=== PATIENT | female | born 1950 | race Caucasian/White ===

== ENCOUNTER → 2016-11-21 | Outpatient (CLI) | payer OTHER ==
--- NOTE | 2016-11-21 15:23 | CT ---
HISTORY: Cough. Study: CT paranasal sinuses without contrast Comparison: None. Technique: Multiple axial images of the paranasal sinuses were obtained without the administration o f IV contrast. Coronal and sagittal reformats were performed and reviewed. Dose reduction techniqu es including Automated Exposure Control (AEC) and adjustment of mA and kV were utilized. Findings: The maxillary sinuses, anterior and posterior ethmoid air cells, sphenoid sinuses, and frontal sinus es demonstrate no evidence for mucosal inflammatory disease. The nasal septum is midline. The osti omeatal unit on the right and left are widely patent without inflammatory change. The left and righ t frontal recesses are unremarkable in their appearance. Visualized portions of the posterior fossa and intracranial structures are unremarkable as well. Multiple tooth roots are seen within the bila teral maxillary sinuses. IMPRESSION: 1. Unremarkable CT of the paranasal sinuses. Reported By:
== END ==
LOC: RAD 13:57
PROVIDERS: ATTEND Internal Medicine Sleep Medicine
DX: R05 Cough (principal); E66.8 Other obesity
CPT/HCPCS: 70486

== ENCOUNTER → 2017-02-10 | Outpatient (CLI) | payer OTHER ==
--- NOTE | 2017-02-10 09:44 | US ---
HISTORY: Left upper quadrant pain Study: The abdominal ultrasound: Multiplanar ultrasonographic examination of the abdomen was perform ed. Comparison: None Findings: The liver is of mildly increased echogenicity consistent with mild fatty infiltration. The gallbladde r shows no evidence of gallstones, pericholecystic fluid or gallbladder wall thickening. Common bile duct measures 3.2 mm in maximum dimension. Spleen is normal in its appearance. The pancreas is normal in its appearance. The kidneys are of normal size, echogenicity and echotexture. The right measures 11.6 cm length by 5.0 x 5.3 cm. The left kidney measures 9.7 cm length by 4.9 x 4.9 cm. The abdominal aorta and inferior vena cava are normal. IMPRESSION: 1. Mild fatty infiltration of the liver. 2. Otherwise negative abdominal ultrasound. Reported By:
== END ==
LOC: RAD 08:29
PROVIDERS: ATTEND Internal Medicine Gastroenterology
DX: R10.12 Left upper quadrant pain (principal)
CPT/HCPCS: 76700

== ENCOUNTER 2019-01-15 18:34 | Inpatient (IN) ==
[2019-01-15] MEDS ORDERED: ZOFRAN INJ 4 MG VIAL IVP ONE (20:43)
[2019-01-15] MEDS ORDERED: NS 1000 ML 1,000 ML IV ONE (20:43)
[2019-01-15] MEDS ORDERED: DEMEROL INJ IVP ONE (20:43)
[2019-01-15] MEDS ORDERED: NS 1000 ML 1,000 ML ONE (20:44)
--- NOTE | 2019-01-15 20:46 | ED.ABDFE ---
HPI Time Seen Time Seen by Provider: 01/15/19 20:35 PCP Primary Care Physician: ANALISA PRICE HPI Comment HPI Comment: PATIENT IS 68YR OLD FEMALE HERE IN THE EMERGENCY ROOM WITH DIFFUSE ABDOMINAL CRAMPING 6/10 RADIATING TO THE BACK. PATIENT WAS DIAGNOSE WITH DIVERTICULITIS ON MEDICATION BUT CONTINUE TO GET WORSE. HAVE DIARRHEA AND NAUSEA. PATIENT NOT HOLDING DOWN FLUID OR MEDICATION. NO FEVER. FEELING WEAK. Complaint Doctors Chief Complaint Comments: ABDOMINAL CRAMPING TIMES 2 DAYS. Chief Complaint:: PT STATES SHE WAS SEEN IN ER IN [place] ON 01/14/19 AND DX WITH DIVERTICULITIS AND GIVEN IVF, RX AND PAIN MEDS ,,, PT STATES SHE HAS NOT BEEN ABLE TO HOLD ANYTHING DOWN AND HAVING DIARRHEA, AND PT C/O SEVERE ABD CRAMPS ,BR Reviewed Nurses Notes Review: Yes Source History Provided: Patient Mode of arrival Mode of Arrival: Ambulatory Timing Onset of Chief Complaint: 01/14/19 Came on: Suddenly Duration Since Onset: Constant Duration: Days Location Location: Diffuse Quality Quality: Cramping Context History of: Abdominal surgery (APPENDECTOMY.) and Similar pain (dx) (DIVERTICULITIS.) Modifying factors Worsening Factors: Food (ORAL INTAKE.) Improving Factors: Lying Still Associated signs and symptoms Associated Signs and Symptoms: Nausea, Vomiting and Diarrhea Other history Other History: HISTORY DIVERTICULITIS. PMH PMH Past Medical History: Yes Past Medical History: Diabetes, Dyslipidemia, GERD and Hypertension Past Surgical History: Yes Surgical History: Appendectomy, UNIT AID Surgery and Hysterectomy Past Surgical History Comment: BREAST REDUCTION Family History History of Family Medical Conditions: Yes Family Medical History: [place] Family Medical History Comment: CEREBRAL HEMMORAGE, Social History Does patient currently use any type of tobacco product: No Have you used tobacco products in the last 12 months: No Type of Tobacco Use: None Does any household member use tobacco: No Alcohol Use: None Do you use any recreational Drugs:: No Lives With: Family Lives Where: Home infectious screening In the last 2 months have you had wt loss of >10#?: NO Have you had fever, night sweats or hemotysis?: No Have you traveled outside the country in the last 6 months?: No Isolation: Standard ROS Review of Systems Constitutional: See HPI, Weakness and Fatigue; negative Fever Eyes: No Symptoms Reported and See HPI ENTM: No Symptoms Reported and See HPI Respiratoy: No Symptoms Reported and See HPI; negative Short of Breath and Wheezing Cardiovascular: No Symptoms Reported and See HPI; negative Chest Pain Gastrointestinal/Abdominal: See HPI, Abdominal Pain, Diarrhea, Nausea and Vomiting Genitourinary: No Symptoms Reported and See HPI Neurological: See HPI and Weakness; negative Headache and Dizziness Musculoskeletal: No Symptoms Reported and See HPI; negative Back Pain Integumentary: No Symptoms Reported and See HPI; negative Change in Color, Rash and Juandice Hematologic/Lymphatic: No Symptoms Reported and See HPI; negative Easy Bruising and Swollen Glands Endocrine: No Symptoms Reported and See HPI; negative Increased Thirst and Increased Urine Psychiatric: No Symptoms Reported and See HPI All Other Systems: Reviewed and Negative PE Vital Signs Vitals: Temperature 97.0 F Pulse Rate 85 Respiratory Rate 18 Blood Pressure [Right Arm] 128/62 Blood Pressure 141/65 O2 Sat by Pulse Oximetry 99 General Limitations: No Limitations General Appearance: Alert and In No Apparent Distress Head Head Exam: Normal Inspection and Atraumatic Eyes Eye exam: Normal Appearance and PERRL; negative Scleral Icterus and Conjunctival Injection ENT ENT Exam: Normal Exam, Normal Oropharynx, Normal External Ear Exam and TM's Normal Bilaterally Neck Neck Exam: Normal Inspection and Trachea Midline; negative Tenderness and Lymphadenopathy Respiratory Respiratory Exam: Normal Lung Sounds Bilat; negative Accessory Muscle Use, Chest Wall Tenderness and Respiratory Distress Respiratory Exam: Bilateral: Clear to Auscultation Cardiovascular Cardiovascular Exam: Regular Rate, Normal Rhythm and Normal Heart Sounds; negative Systolic Murmur and Diastolic Murmur Abdominal Exam Abdominal Exam: Normal Bowel Sounds, Soft and Tenderness Abdominal Tenderness: Diffuse and Moderate Rectal Rectal Exam: Deferred Back Back Exam: Normal Inspection; negative (R) CVA Tenderness and (L) CVA Tenderness Extremeties Extremities Exam: Normal Inspection and Normal Capillary Refill; negative Tenderness, Edema and Calf Tenderness External Exam: Female: Deferred : Speculum Exam (Female): Deferred : Bimanual Exam (female): Deferred Neurologic Neurological Exam: Alert, Oriented X3 and CN II-XII Intact; negative Motor Sensory Deficit Skin Skin Exam: Dry; negative Rash MDM Differential Diagnosis Differential Diagnosis- Considerations may include:: Cholcystitis, Cholelethiasis, Constipation, Diverticular disease, Gastritus/PUD, Gastroenteritis, Inflammatory BD, Ischemic Bowel, Pancreatitis, Urinary tract infection and Urolithiasis COURSE Treatment Treatment: SEE ORDERS. Education/Counseling Education/Counseling: Patient Educated On: Diagnosis ROR Labs Reviewed Laboratory Results Reviewed?: Yes Result Diagrams: 01/18/19 04:38 01/18/19 04:38 Laboratory: WBC 6.1 X10^3/uL (3.6-10.0) 01/15/19 21:00 RBC 4.65 X10^6/uL (3.5-5.4) 01/15/19 21:00 Hgb 13.1 g/dL (12.0-16.0) 01/15/19 21:00 Hct 38.4 % (36.0-47.0) 01/15/19 21:00 MCV 82.5 fL (80.0-100.0) 01/15/19 21:00 MCH 28.1 pg (27.0-34.0) 01/15/19 21:00 MCHC 34.1 g/dL (33.0-35.0) 01/15/19 21:00 RDW 15.2 % (11.6-16.5) 01/15/19 21:00 Plt Count 214 X10^3/uL (150.0-450.0) 01/15/19 21:00 MPV 8.1 fL (7.4-11.0) 01/15/19 21:00 Neut % (Auto) 65.8 % (42.0-75.0) 01/15/19 21:00 Lymph % (Auto) 19.6 % (21.0-51.0) L 01/15/19 21:00 [place] % (Auto) 13.6 % (0.0-13.0) H 01/15/19 21:00 Eos % (Auto) 0.6 % (0.9-2.9) L 01/15/19 21:00 Baso % (Auto) 0.4 % (0.2-1.0) 01/15/19 21:00 Neut # (Auto) 4.0 x10^3/uL (2.2-4.8) 01/15/19 21:00 Lymph # (Auto) 1.2 X10^3/uL (1.3-2.9) L 01/15/19 21:00 [place] # (Auto) 0.8 x10^3/uL (0.3-0.8) 01/15/19 21:00 Eos # (Auto) 0.0 x10^3/uL (0.0-0.2) 01/15/19 21:00 Baso # (Auto) 0.0 X10^3/uL (0.0-0.1) 01/15/19 21:00 Absolute Nucleated RBC 0.0 /100WBC 01/15/19 21:00 Sodium 135 mmol/L (136-145) L 01/15/19 21:00 Corrected Sodium 136 mmol/L (136-145) 01/15/19 21:00 Potassium 3.3 mmol/L (3.5-5.1) L 01/15/19 21:00 Chloride 97 mmol/L (98-107) L 01/15/19 21:00 Carbon Dioxide 28.7 mmol/L (21-32) 01/15/19 21:00 BUN 15 mg/dL (7-18) 01/15/19 21:00 Creatinine 0.82 mg/dL (0.55-1.02) 01/15/19 21:00 Est GFR (MDRD) Af Amer > 60 (>60) 01/15/19 21:00 Est GFR (MDRD) Non-Af > 60 (>60) 01/15/19 21:00 Glucose 134 mg/dL (65-99) H 01/15/19 21:00 Calcium 9.4 mg/dL (8.5-10.1) 01/15/19 21:00 Corrected Calcium TNP 01/15/19 21:00 Total Bilirubin 0.40 mg/dL (0.2-1.0) 01/15/19 21:00 AST 21 Units/L (15-37) 01/15/19 21:00 ALT 19 Units/L (12-78) 01/15/19 21:00 Alkaline Phosphatase 60 Units/L (46-116) 01/15/19 21:00 Total Protein 7.4 g/dL (6.4-8.2) 01/15/19 21:00 Albumin 3.6 g/dL (3.4-5.0) 01/15/19 21:00 Globulin 3.8 g/dL (2.5-4.5) 01/15/19 21:00 Albumin/Globulin Ratio 0.9 Ratio (1.1-2.1) L 01/15/19 21:00 Amylase 35 Units/L (25-115) 01/15/19 21:00 Lipase 76 Units/L (73-393) 01/15/19 21:00 XRAY XRAY Interpreted by: Radiologist XRAY Findings: REPORT NOTED AND DISCUSSED WITH PATIENT. Opioid Opioid Risk Tool Age (Gokul box if 16-45): No History of Preadolescent Sexual Abuse: No Total: 0 Total Score Risk Category: Low Risk Copyright: Carlos WEBSTER predicting aberrant behaviors Diagnosis Discharge Problem: Acute colitis, Acute diverticulitis, Acute dehydration Abdominal pain Qualifiers: Abdominal location: generalized Qualified Code(s): R10.84 - Generalized abdominal pain Instructions Instructions: Dehydration, Adult, [id number] Diverticulitis, Pvkw-[id number] Colitis Forms: Excuse From Work or School Patient Portal
[2019-01-15] MEDS ORDERED: FLAGYL IV PREMIX 500 MG BAG 500 MG/100 ML BAG IV ONE (20:58)
[2019-01-15] MEDS ORDERED: ZOFRAN INJ 4 MG VIAL ONE (20:58)
[2019-01-15] MEDS ORDERED: DEMEROL INJ ONE (20:59)
[2019-01-15 21:10] LABS: BASOPHILS % (AUTO) 0.4 % (0.2-1.0); EOSINOPHILS % (AUTO) 0.6 % (0.9-2.9); HEMATOCRIT 38.4 % (36.0-47.0); HEMOGLOBIN 13.1 g/dL (12.0-16.0); LYMPHOCYTES # (AUTO) 1.2 X10^3/uL (1.3-2.9); LYMPHOCYTES % (AUTO) 19.6 % (21.0-51.0); MEAN CORPUSCULAR HEMOGLOBIN 28.1 pg (27.0-34.0); MEAN CORPUSCULAR HGB CONC 34.1 g/dL (33.0-35.0); MEAN CORPUSCULAR VOLUME 82.5 fL (80.0-100.0); MEAN PLATELET VOLUME 8.1 fL (7.4-11.0); MONOCYTES # (AUTO) 0.8 x10^3/uL (0.3-0.8); MONOCYTES % (AUTO) 13.6 % (0.0-13.0); NEUTROPHILS % (AUTO) 65.8 % (42.0-75.0); PLATELET COUNT 214 X10^3/uL (150.0-450.0); RED BLOOD COUNT 4.65 X10^6/uL (3.5-5.4); RED CELL DISTRIBUTION WIDTH 15.2 % (11.6-16.5); WHITE BLOOD COUNT 6.1 X10^3/uL (3.6-10.0)
[2019-01-15 21:19] LABS: ALANINE AMINOTRANSFERASE 19 Units/L (12-78); ALBUMIN 3.6 g/dL (3.4-5.0); ALKALINE PHOSPHATASE 60 Units/L (46-116); AMYLASE 35 Units/L (25-115); ASPARTATE AMINO TRANSFERASE 21 Units/L (15-37); BLOOD UREA NITROGEN 15 mg/dL (7-18); CALCIUM 9.4 mg/dL (8.5-10.1); CARBON DIOXIDE 28.7 mmol/L (21-32); CHLORIDE 97 mmol/L (98-107); COR NA(FOR HYPERGLY) 136 mmol/L (136-145); CREATININE 0.82 mg/dL (0.55-1.02); LIPASE 76 Units/L (73-393); SODIUM 135 mmol/L (136-145); TOTAL PROTEIN 7.4 g/dL (6.4-8.2); eGFR NON BLACK RACES > 60 (>60)
[2019-01-15] MEDS: FLAGYL IV PREMIX 500 MG BAG 500 MG/100 ML BAG IV ONE (21:29)
--- NOTE | 2019-01-15 22:57 | CT ---
CT abdomen and pelvis with contrast Indication: Diverticulitis, abdominal pain Technique: Helical CT images of the abdomen and pelvis were obtained with IV contrast. Reformatted images in the coronal and sagittal planes were also generated for review. Comparison: None Findings: Mild scarring versus atelectasis of the bilateral lung bases noted. No acute osseous abnormality. The liver is mildly enlarged and diffusely hypoattenuating, suggestive for fatty infiltration. No focal hepatic lesions seen. The gallbladder, spleen, pancreas, adrenals and kidneys are unremarkable. Evaluation of the GI tract is slightly limited without oral contrast. Accounting for this, there is diffuse mural thickening of the entire colon, compatible with pancolitis. Mild diverticulosis of the distal colon also noted. No abscess or free air to suggest perforation seen. There is no bowel obstruction. The abdominal aorta is mildly calcified without aneurysm. Urinary bladder is normal without stones. Uterus is absent. No significant free fluid or bulky lymphadenopathy is identified. Impression: Moderate diffuse mural thickening of the entire colon is compatible with pancolitis, which is likely infectious rather than inflammatory or ischemic in etiology. Correlate clinically. Mild distal colonic diverticulosis, enlarged fatty liver and additional findings as above. Reported By:
[2019-01-16 02:05] VITALS: BMI 31.0
[2019-01-16] MEDS ORDERED: FLAGYL IV PREMIX 500 MG BAG 500 MG/100 ML BAG IV ONE (02:40)
[2019-01-16] MEDS: FLAGYL IV PREMIX 500 MG BAG 500 MG/100 ML BAG IV SCH ×4 (02:50→22:30)
[2019-01-16] MEDS: FLAGYL IV PREMIX 500 MG BAG 500 MG/100 ML BAG IV ONE (02:50)
[2019-01-16] MEDS ORDERED: ZOFRAN INJ 4 MG VIAL ONE (02:59)
[2019-01-16 03:02] LABS: CRYPTOSPORIDIUM PARVUM ANTIGEN NEGATIVE (NEGATIVE); GIARDIA LAMBLIA ANTIGEN NEGATIVE (NEGATIVE)
[2019-01-16] MEDS: ZOFRAN INJ 4 MG VIAL IVP PRN ×2 (03:05→08:49)
[2019-01-16 05:17] LABS: BASOPHILS % (AUTO) 0.4 % (0.2-1.0); EOSINOPHILS # (AUTO) 0.1 x10^3/uL (0.0-0.2); LYMPHOCYTES # (AUTO) 1.5 X10^3/uL (1.3-2.9); LYMPHOCYTES % (AUTO) 26.8 % (21.0-51.0); MEAN CORPUSCULAR HEMOGLOBIN 27.9 pg (27.0-34.0); MEAN CORPUSCULAR HGB CONC 33.2 g/dL (33.0-35.0); MONOCYTES # (AUTO) 0.9 x10^3/uL (0.3-0.8); MONOCYTES % (AUTO) 15.1 % (0.0-13.0); NEUTROPHILS # (AUTO) 3.2 x10^3/uL (2.2-4.8); NEUTROPHILS % (AUTO) 55.7 % (42.0-75.0); PLATELET COUNT 195 X10^3/uL (150.0-450.0); RED BLOOD COUNT 4.29 X10^6/uL (3.5-5.4); RED CELL DISTRIBUTION WIDTH 15.1 % (11.6-16.5); WHITE BLOOD COUNT 5.8 X10^3/uL (3.6-10.0)
[2019-01-16 05:28] LABS: ALANINE AMINOTRANSFERASE 15 Units/L (12-78); ALBUMIN 3.1 g/dL (3.4-5.0); ALKALINE PHOSPHATASE 50 Units/L (46-116); ASPARTATE AMINO TRANSFERASE 17 Units/L (15-37); BLOOD UREA NITROGEN 14 mg/dL (7-18); CALCIUM 8.6 mg/dL (8.5-10.1); CARBON DIOXIDE 28.6 mmol/L (21-32); CHLORIDE 98 mmol/L (98-107); COR CA(FOR HYPOALB) 9.3 mg/dL (8.5-10.1); COR NA(FOR HYPERGLY) 138 mmol/L (136-145); CREATININE 0.71 mg/dL (0.55-1.02); SODIUM 137 mmol/L (136-145); TOTAL PROTEIN 6.5 g/dL (6.4-8.2); eGFR NON BLACK RACES > 60 (>60)
[2019-01-16] MEDS ORDERED: POTASSIUM CHL 60 MEQ/NS 0.45% 500 ML IV PRN (06:12)
[2019-01-16] MEDS ORDERED: MICRO K EXTEN CAP 10 MEQ PO PRN (06:12)
[2019-01-16] MEDS ORDERED: POTASSIUM CHLORIDE LIQ 20 MEQ UDC PO PRN (06:12)
[2019-01-16] MEDS ORDERED: POTASSIUM CHL 40 MEQ/NS 0.45% 500 ML IV PRN (06:12)
[2019-01-16] MEDS ORDERED: KLOR-CON PO PRN (06:12)
[2019-01-16] MEDS: CIPRO IV 400 MG PREMIX* 400 MG/200 ML IV.SOLN. IV SCH ×2 (08:46→21:26)
[2019-01-16] MEDS: NS 1000 ML 1,000 ML IV SCH (08:47)
[2019-01-16] MEDS: MAGNESIUM SULFATE 1 GRAM/100 mL PREMIX 1 GM/100 ML BAG IV PRN ×2 (10:53→11:55)
[2019-01-16] MEDS: DEMEROL INJ IVP PRN ×2 (10:59→21:18)
[2019-01-16] MEDS ORDERED: LOVENOX INJ 40 MG SYR SC SCH (11:00)
--- NOTE | 2019-01-16 11:22 | DR.H&P ---
H&P - History & Physical for Day of: H&P Date: 01/16/19 - Chief Complaint Chief Complaint: ABDOMINAL PAIN - History of Present Illness History of Present Illness: IS A 68 YEAR OLD WHITE FEMALE WHO PRESENTED TO THE ER WITH COMPLAINTS OF ABDOMINAL CRAMPS, NAUSEA, VOMITING, AND DIARRHEA. SHE WAS DIAGNOWSED WITH DIVERTICULITIS ON 01/14/19. SHE WAS GIVEN FLAGYL AND CEPHALEXIN AT THAT TIME. SHE DENIES IMPROVEMENT IN SYMPTOMS. ON ARRIVAL, VITALS WERE 97.0-85-18-99%-141/65. LABS WERE OBTAINED. ABNORMAL LAB VALUES INCLUDE THE FOLLOWING: SODIUM 135, POTASSIUM 3.3, CHLORIDE 97, GLUCOSE 134. AN ABDOMEN/PELVIS CT WAS OBTAINED AND REVEALED: Moderate diffuse mural thickening of the entire colon is compatible with pancolitis, which is likely infectious rather than inflammatory or ischemic in etiology. Correlate clinically. Mild distal colonic diverticulosis, enlarged fatty liver. SHE WAS GIVEN A NORMAL SALINE BOLUS, ZOFRAN 4MG IV X 1, FLAGYL 500MG IV X 1, AND DEMEROL 25MG IV X 1 IN THE ER. SHE WAS ADMITTED FOR ACUTE COLITIS AND DEHYDRATION. WE WILL START CIPRO 400MG IV Q12H, FLAGYL 500MG IV Q6H, DEMEROL 25MG IV Q6H PRN, ZOFRAN 4MG IV Q6H PRN, NORMAL SALINE AT 75ML/HR, AND THE POTASSIUM PROTOCOL. WE WILL OBTAIN STOOL STUDIES. OTHERWISE, WE PLAN TO FOLLOW UP WITH AM LABS AND CONTINUE TO MONITOR. - Past Medical History Past Medical History: Hypertension, Dyslipidemia, Diabetes, GERD - Past Surgical History Surgical History: Appendectomy, [employer] Surgery, Hysterectomy, Ortho Surgery - Family History Family Medical History: [place] - Social History Does patient currently use any type of tobacco product: No Have you used tobacco products in the last 12 months: No Type of Tobacco Use: None Does any household member use tobacco: No Alcohol Use: None Drug Use: None Prescription drug monitoring program results: PDMP was not reviewed - Medications Home Medications: erythromycin base Allergy (Verified 01/16/19 01:31) penicillin V Allergy (Verified 01/15/19 18:42) CONTINUE taking the following medications losartan-hydrochlorothiazide 1 tab PO DAILY 01/16/19 [History] pantoprazole 40 mg PO BID 01/16/19 [History] ranitidine HCl 150 mg PO DAILY 01/16/19 [History] - Review of Systems Constitutional: Fever, Weakness Eyes: No Symptoms Reported ENT: No Symptoms Reported Respiratory: No Symptoms Reported Cardiovascular: No Symptoms Reported Gastrointestinal: Nausea, Vomiting, Abdominal Pain, Diarrhea Genitourinary: No Symptoms Reported Musculoskeletal: No Symptoms Reported Skin: No Symptoms Reported Neurological: Weakness - Physical Exam Vital Signs: Temperature 98.4 F Pulse Rate [Right Brachial] 82 Pulse Rate [Apical] 74 Pulse Rate 85 Respiratory Rate 20 Blood Pressure [Right Arm] 148/70 Blood Pressure 141/65 O2 Sat by Pulse Oximetry 96 Oriented: Normal Eyes: Normal Ear: Normal Nose: Normal Throat: Normal Respiratory: Diminished Throughout Cardiovascular: Normal : Normal Auscultation: Bowel Sounds: Normal Palpation: Normal Tenderness: Diffuse, Moderate. negative: Rebound, Guarding, Rigidity Skin: Decreased [place] Musculoskeletal: Normal Psychiatric: Normal Mood Description: Calm Affect: Normal Speech Pattern: Clear - Assessment/Plan (1) Acute colitis Status: Acute Plan: CIPRO 400MG IV Q12H, FLAGYL 500MG IV Q6H, DEMEROL 25MG IV Q6H PRN, ZOFRAN 4MG IV Q6H PRN, NORMAL SALINE AT 75ML/HR, AND THE POTASSIUM PROTOCOL (2) Acute dehydration Status: Acute Plan: NORMAL SALINE AT 75ML/HR, CONTINUE TO MONITOR - Allergies Allergies/Adverse Reactions: Allergies Allergy/AdvReac Type Severity Reaction Status Date / Time erythromycin base Allergy Verified 01/16/19 01:31 penicillin V Allergy Verified 01/15/19 18:42
[2019-01-16] MEDS: K-RIDER 10 MEQ/NS 100 ML 10 MEQ/100 ML BAG IV PRN ×6 (13:30→21:24)
[2019-01-17] MEDS: NS 1000 ML 1,000 ML IV SCH ×3 (00:04→19:07)
[2019-01-17] MEDS: FLAGYL IV PREMIX 500 MG BAG 500 MG/100 ML BAG IV SCH ×4 (03:47→22:30)
[2019-01-17 05:25] LABS: BASOPHILS % (AUTO) 0.5 % (0.2-1.0); EOSINOPHILS # (AUTO) 0.2 x10^3/uL (0.0-0.2); EOSINOPHILS % (AUTO) 4.6 % (0.9-2.9); HEMATOCRIT 33.3 % (36.0-47.0); HEMOGLOBIN 11.4 g/dL (12.0-16.0); LYMPHOCYTES # (AUTO) 1.6 X10^3/uL (1.3-2.9); LYMPHOCYTES % (AUTO) 30.7 % (21.0-51.0); MEAN CORPUSCULAR HEMOGLOBIN 28.5 pg (27.0-34.0); MEAN CORPUSCULAR HGB CONC 34.4 g/dL (33.0-35.0); MEAN CORPUSCULAR VOLUME 82.9 fL (80.0-100.0); MEAN PLATELET VOLUME 9.1 fL (7.4-11.0); MONOCYTES # (AUTO) 0.6 x10^3/uL (0.3-0.8); MONOCYTES % (AUTO) 11.2 % (0.0-13.0); NEUTROPHILS # (AUTO) 2.8 x10^3/uL (2.2-4.8); PLATELET COUNT 207 X10^3/uL (150.0-450.0); RED BLOOD COUNT 4.01 X10^6/uL (3.5-5.4); RED CELL DISTRIBUTION WIDTH 14.9 % (11.6-16.5); WHITE BLOOD COUNT 5.3 X10^3/uL (3.6-10.0)
[2019-01-17 05:31] LABS: ALANINE AMINOTRANSFERASE 12 Units/L (12-78); ALBUMIN 2.9 g/dL (3.4-5.0); ALKALINE PHOSPHATASE 48 Units/L (46-116); ASPARTATE AMINO TRANSFERASE 17 Units/L (15-37); BLOOD UREA NITROGEN 8 mg/dL (7-18); CALCIUM 7.7 mg/dL (8.5-10.1); CARBON DIOXIDE 27.7 mmol/L (21-32); CHLORIDE 102 mmol/L (98-107); COR CA(FOR HYPOALB) 8.6 mg/dL (8.5-10.1); COR NA(FOR HYPERGLY) 139 mmol/L (136-145); CREATININE 0.59 mg/dL (0.55-1.02); SODIUM 138 mmol/L (136-145); eGFR NON BLACK RACES > 60 (>60)
[2019-01-17] MEDS: CIPRO IV 400 MG PREMIX* 400 MG/200 ML IV.SOLN. IV SCH ×2 (09:00→20:54)
[2019-01-18] MEDS: NS 1000 ML 1,000 ML IV SCH (02:34)
[2019-01-18] MEDS: FLAGYL IV PREMIX 500 MG BAG 500 MG/100 ML BAG IV SCH ×2 (02:50→09:37)
[2019-01-18 05:27] LABS: BASOPHILS # (AUTO) 0.1 X10^3/uL (0.0-0.1); BASOPHILS % (AUTO) 0.9 % (0.2-1.0); EOSINOPHILS # (AUTO) 0.5 x10^3/uL (0.0-0.2); EOSINOPHILS % (AUTO) 7.4 % (0.9-2.9); HEMATOCRIT 34.4 % (36.0-47.0); HEMOGLOBIN 11.8 g/dL (12.0-16.0); LYMPHOCYTES # (AUTO) 2.3 X10^3/uL (1.3-2.9); MEAN CORPUSCULAR HEMOGLOBIN 28.5 pg (27.0-34.0); MEAN CORPUSCULAR HGB CONC 34.2 g/dL (33.0-35.0); MEAN CORPUSCULAR VOLUME 83.1 fL (80.0-100.0); MEAN PLATELET VOLUME 8.9 fL (7.4-11.0); MONOCYTES # (AUTO) 0.7 x10^3/uL (0.3-0.8); NEUTROPHILS # (AUTO) 2.8 x10^3/uL (2.2-4.8); NEUTROPHILS % (AUTO) 44.7 % (42.0-75.0); PLATELET COUNT 228 X10^3/uL (150.0-450.0); RED BLOOD COUNT 4.14 X10^6/uL (3.5-5.4); RED CELL DISTRIBUTION WIDTH 15.1 % (11.6-16.5); WHITE BLOOD COUNT 6.2 X10^3/uL (3.6-10.0)
[2019-01-18 05:44] LABS: ALANINE AMINOTRANSFERASE 15 Units/L (12-78); ALBUMIN 2.9 g/dL (3.4-5.0); ALKALINE PHOSPHATASE 49 Units/L (46-116); ASPARTATE AMINO TRANSFERASE 20 Units/L (15-37); BLOOD UREA NITROGEN 5 mg/dL (7-18); CALCIUM 7.8 mg/dL (8.5-10.1); CARBON DIOXIDE 26.1 mmol/L (21-32); CHLORIDE 105 mmol/L (98-107); COR CA(FOR HYPOALB) 8.7 mg/dL (8.5-10.1); COR NA(FOR HYPERGLY) 140 mmol/L (136-145); CREATININE 0.56 mg/dL (0.55-1.02); SODIUM 139 mmol/L (136-145); TOTAL PROTEIN 5.9 g/dL (6.4-8.2); eGFR NON BLACK RACES > 60 (>60)
[2019-01-18] MEDS: K-DUR TAB 20 MEQ PO PRN ×2 (07:12→09:37)
[2019-01-18] MEDS: CIPRO IV 400 MG PREMIX* 400 MG/200 ML IV.SOLN. IV SCH (09:37)
[2019-01-18 10:52] VITALS: BP 171/84
== END 2019-01-18 12:05 | disposition home or self-care (01) | DRG 392 ==
LOC: ER 18:41 → MED/SURG 01-16 00:12
PROVIDERS: ADMIT Internal Medicine; ATTEND Internal Medicine
DX: E78.2 Mixed hyperlipidemia; K21.9 Gastro-esophageal reflux disease without esophagitis; K57.32 Diverticulitis of large intestine without perforation or abscess without bleeding; E86.0 Dehydration; R11.2 Nausea with vomiting, unspecified; K52.89 Other specified noninfective gastroenteritis and colitis; R10.84 Generalized abdominal pain; I10 Essential (primary) hypertension; R19.7 Diarrhea, unspecified; K76.0 Fatty (change of) liver, not elsewhere classified
CPT/HCPCS: 36415; 74177; 80053; 82150; 82270; 83630; 83690; 83735; 84132; 85025; 87045; 87328; 87329; 87338; 87449; 87493; 87899; 96365; 96367; 96374; 96375; 99284; A4222; S0030; J0744; J1650; J2175; J2405; J3475; J3480; J7030